=== PATIENT | male | born 2000 | race Caucasian/White ===

== ENCOUNTER 2021-05-27 23:31 | Emergency (ER) | payer SELFPAY | END 2021-05-28 01:38 | disposition left against medical advice (07) | LOC: ER 23:31 | DX: M54.2 Cervicalgia (principal); Z53.21 Procedure and treatment not carried out due to patient leaving prior to being seen by health care provider ==

== ENCOUNTER 2023-09-01 20:23 | Emergency (ER) | payer OTHER ==
[~2023-09-01] VITALS: Ht 177.8 cm; Wt 80.0 kg
[2023-09-01 20:30] VITALS: BP 135/70; PULSE 97; RESP 15; TEMP 99.4; O2SAT 96
== END 2023-09-01 20:45 ==
LOC: ER 20:30
DX: S46.912A Strain of unspecified muscle, fascia and tendon at shoulder and upper arm level, left arm, initial encounter (principal); X58.XXXA Exposure to other specified factors, initial encounter; Y93.89 Activity, other specified; Y92.89 Other specified places as the place of occurrence of the external cause; Y99.8 Other external cause status
CPT/HCPCS: 99283